=== PATIENT | male | born 1960 ===

== ENCOUNTER 2021-01-04 02:35 | Emergency (ER) | payer SELFPAY ==
[~2021-01-04] VITALS: Ht 175.3 cm; Wt 70.0 kg
[2021-01-04 02:38] VITALS: BP 135/86
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
== END 2021-01-04 02:50 ==
LOC: ED 02:38
DX: R07.89 Other chest pain (principal); R05 Cough; Z53.21 Procedure and treatment not carried out due to patient leaving prior to being seen by health care provider